=== PATIENT | male | born 1975 | race Hispanic/Latino ===

== ENCOUNTER → 2016-12-09 | Outpatient (REF) ==
--- NOTE | 2016-12-10 03:02 | REP ---
Clinical: Pain and disability. Technique: AP, lateral, flexion/extension, bilateral oblique and open mouth views of the cervical spine. Findings: Mild focal degenerative disc disease at the C5-6 level with subtle marginal osteophyte formation, endplate sclerosis and disc space narrowing is appreciated. Remainder examination demonstrates mild age-related changes. There is no acute fracture / compression injury or subluxation. Prevertebral soft tissues are normal. Spinous processes are intact. Open mouth view demonstrates normal C1-C2 articulation and odontoid process. Mild facet arthropathy at the C5-6 and C6-7 levels is suggested by oblique views. Impression: Focal degenerative disc osteophyte complex at the C5-6 level with possible neural foraminal narrowing at C5-6 and C6-7. Signed by Dexter Mahajan MD 12/10/2016 02:53 A
== END ==
LOC: M RAD 10:31
PROVIDERS: ATTEND Internal Medicine
DX: M51.9 Unspecified thoracic, thoracolumbar and lumbosacral intervertebral disc disorder (principal)